=== PATIENT | male | born 1965 | race Two or more races ===

== ENCOUNTER 2016-07-31 16:42 | Inpatient (IN) | payer OTHER ==
--- NOTE | 2016-07-31 17:54 | EDPHY ---
H & P Time Seen by Provider: 07/31/16 17:22 HPI/ROS: CHIEF COMPLAINT: left middle finger infection HISTORY OF PRESENT ILLNESS: 50-year-old male presents emergency department reporting pain to his left middle finger. Patient states 5 days ago he was receiving a stool work when he had a sudden sharp pain to the palmar aspect of his DIP joint, he reports later that evening his finger became red and swollen and began draining blood and pus to dorsal aspect middle finger just proximal to fingernail. He denies any break in skin, denies paronychia. Patient denies fevers or chills, he reports he is unable to bend his finger due to pain and swelling. He reports pain and swelling has increased over last 3 days. He is unsure of tetanus status. Patient is [id number]. Denies any medical history. REVIEW OF SYSTEMS: A comprehensive 10 point review of systems is otherwise negative aside from elements mentioned in the history of present illness. Smoking Status: Never smoked Physical Exam: GEN: Awake, alert, oriented, no acute distress RESP: nl resp effort MSK: Left middle finger with diffuse swelling, erythema, tenderness to palpation to palmar aspect and dorsal aspect middle finger, positive Kanaval signs. No erythematous streaks. Patient with a bloody serous drainage to dorsal aspect hand right at nail bed. Sensation intact to light touch, moderate tenderness to palpation. Able to move finger at MCP joint. No wrist tenderness, 2+ radial pulses. Constitutional: Initial Vital Signs Temperature (C) 36.7 C 07/31/16 16:59 Heart Rate 76 07/31/16 16:59 Respiratory Rate 18 07/31/16 16:59 Blood Pressure 189/104 H 07/31/16 16:59 O2 Sat (%) 96 07/31/16 16:59 O2 Delivery Mode Room Air Allergies/Adverse Reactions: No Known Allergies Allergy (Unverified 07/31/16 16:58) Home Medications: Medication Instructions Recorded NK [No Known Home Meds] 07/31/16 MDM/Departure - MDM Diagnostics: Finger x-ray independently reviewed by me Impression: 1. Small chip or avulsion fractures along the dorsal aspect of the DIP joint left third digit. Dictated By: Domingo Morejon MD Procedures: Left middle finger anesthetized with digital block using 1% lidocaine mixed with 0.5% Marcaine without epinephrine, good anesthesia obtained. Dorsal aspect of 3rd finger just proximal to fingernail debrided. Minimal purulent discharge out with blood. Medications Given: Discontinued Medications Cefazolin Sodium/Dextrose (Ancef 1 Gm (Premix)) 50 mls @ 200 mls/hr IV EDNOW ONE PRN Reason: Protocol Stop: 07/31/16 18:17 Last Admin: 07/31/16 18:09 Dose: 50 mls ED Course/Re-evaluation: IV established, CBC and chemistry panel obtained, patient is given 1 g of Ancef IV. CBC is unremarkable, x-ray is obtained. 7pm-I have called Dr. Bello for consultation as I am concerned the patient has a tenosynovitis. He is requesting an MRI with contrast. The patient has not had anything to eat or drink since 9:00 a.m.. He is aware of plan for NPO. 1030pm-MRI shows no evidence tenosynovitis, no osteo, no fluid collection. I spoke with Dr. Bello about these results. He reviewed the MRI himself in sees no evidence of tenosynovitis or fluid collection that needs I&D. Patient will be admitted to the hospitalist for IV antibiotics and further observation. - Depart Disposition: [facility] Inpatient Acute Clinical Impression: Cellulitis of left middle finger Condition: Fair Referrals: NONE *PRIMARY CARE P,. [Primary Care Provider] - As per Instructions
[2016-07-31 18:36] LABS: % IMMATURE GRANULYOCYTES 0.3 % (0.0-1.1); ABSOLUTE IMMATURE GRANULOCYTES 0.03 10^3/uL (0.00-0.10); ADD DIFF? NO; ADD MORPH? NO; ADD SCAN? NO; ATYPICAL LYMPHOCYTE FLAG 10 (0-99); FRAGMENT RBC FLAG 0 (0-99); HEMATOCRIT 46.2 % (40.0-51.0); HEMOGLOBIN 16.5 g/dL (13.7-17.5); LEFT SHIFT FLG 0 (0-99); LIPEMIA HEMOLYSIS FLAG 90 (0-99); MEAN CELL HEMOGLOBIN 30.9 pg (27.9-34.1); MEAN CELL HEMOGLOBIN CONCENTR. 35.7 g/dL (32.4-36.7); MEAN CELL VOLUME 86.5 fL (81.5-99.8); MEAN PLATELET VOLUME 12.5 fL (8.7-11.7); PLATELET CLUMPS FLAG 0 (0-99); PLATELET COUNT 153 10^3/uL (150-400); RED BLOOD CELL COUNT 5.34 10^6/uL (4.40-6.38); RED CELL DISTRIBUTION WIDTH 12.8 % (11.5-15.2)
[2016-07-31 18:51] LABS: ANION GAP 12 mEq/L (8-16); CALCIUM 9.7 mg/dL (8.5-10.4); CARBON DIOXIDE 26 mEq/l (22-31); CHLORIDE 102 mEq/L (97-110); CREATININE 0.7 mg/dL (0.7-1.3); GLOMERULAR FILTRATION RATE > 60; GLUCOSE 77 mg/dL (70-100); SODIUM 140 mEq/L (134-144)
[2016-07-31] MEDS ORDERED: GADOBUTROL 10 ML VIAL IVP ONE (20:54)
[2016-07-31] MEDS ORDERED: VANCOMYCIN HCL/NORMAL SALINE 250 ML IV ONE (23:37)
[2016-07-31] MEDS ORDERED: ONDANSETRON DISINTEGRATING 4 MG TAB PO PRN (23:38)
[2016-07-31] MEDS ORDERED: ONDANSETRON 4 MG/2 ML VIAL IVP PRN (23:38)
[2016-07-31] MEDS ORDERED: ACETAMINOPHEN 325 MG TAB PO PRN (23:38)
[2016-07-31] MEDS ORDERED: NS 1,000 ML IV SCH (23:45)
--- NOTE | 2016-08-01 00:32 | GHP ---
[f rep st] HISTORY AND PHYSICAL DATE OF ADMISSION: 07/31/2016 CHIEF COMPLAINT: Finger infection. 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 He was squeezing something and felt immediate pain on the inside part of his finger . He said that it immediately turned red after that. The pain continued. However, he was still ab le to work. He did note that some pus came out of the area below his nail today. Thus, he presente d to the emergency department. He has never had any severe infections before. He has never had any allergies to antibiotics. He has not had any fevers at home. He has no pain in his hand. He is n ot really able to move the DIP or the PIP joints. He is able to move the MCP joint. PAST MEDICAL/SURGICAL HISTORY: None. MEDICATIONS: None. ALLERGIES: None. FAMILY HISTORY: Says does not have any major problems running in his family. SOCIAL HISTORY: He occasionally drinks. Does not smoke. REVIEW OF SYSTEMS: A 10-point review of systems is conducted and is negative except per HPI. PHYSICAL EXAMINATION: VITAL SIGNS: Blood pressure 189/104, heart rate 76, respiration rate 18, sat urating 96% on room air, temperature 36.7. GENERAL: The patient is a very pleasant [place]-speakin g man who appears comfortable, in no acute distress. HEENT: Shows him to be normocephalic, atrauma tic. CARDIOVASCULAR: Shows regular rate and rhythm. No murmurs, rubs, or gallops. PULMONARY: Sh ows lungs clear to auscultation bilaterally. ABDOMEN: Soft, nontender, nondistended. SKIN: Shows no rash. : Shows no Nixon. NEUROLOGIC: Shows him to be alert and oriented x3. He is moving a ll extremities. PSYCHIATRIC: Shows normal mood and affect. EXTREMITIES: Show his left middle fin hiram to be edematous, erythematous, warm. He does have sensation. It is quite tender to palpation. Has some blood oozing out from below his finger. He has been soaking it in water. I was told that there was pus there previously. He has no streaking, no axillary lymphadenopathy. LABS: CBC is normal. Basic metabolic panel is normal. DATA: 1. I discussed this with Rosmery Grider in the ED. Will admit to med/surg. 2. MRI shows swelling involving the left 3rd digit with enhancement. There is a fluid collection. IMPRESSION AND PLAN: This is a 50-year-old man with a finger infection. 1. Finger infection: He has no systemic signs at this point but I think he needs IV antibiotics gi marlo the location and the appearance of his finger. I think this is likely gram-positive though he w orks as a process control board operator so for now, I will cover gram-negatives. I and D was attempted in the emergency d epartment unsuccessfully. Dr. Bello with Hand Surgery has been consulted. I will place an Infectiou s Disease consult order as well to request a nonurgent consult for tomorrow. This is a high-risk di agnosis with an infection involving the finger. 2. Hypertension: This is uncontrolled, I believe, due to pain. I will not treat this at this poin t but rather treat his pain. /[id number]/MODL
[2016-08-01] MEDS: ERTAPENEM 1 GM in NS 100 ML IV SCH ×2 (02:20→09:54)
[2016-08-01] MEDS: oxyCODONE IR 5 MG TAB PO PRN ×4 (04:18→14:53)
[2016-08-01 05:21] LABS: % IMMATURE GRANULYOCYTES 0.3 % (0.0-1.1); ABSOLUTE IMMATURE GRANULOCYTES 0.03 10^3/uL (0.00-0.10); ADD DIFF? NO; ADD MORPH? NO; ADD SCAN? NO; ATYPICAL LYMPHOCYTE FLAG 0 (0-99); FRAGMENT RBC FLAG 0 (0-99); HEMATOCRIT 43.2 % (40.0-51.0); HEMOGLOBIN 15.1 g/dL (13.7-17.5); LEFT SHIFT FLG 0 (0-99); LIPEMIA HEMOLYSIS FLAG 90 (0-99); MEAN CELL HEMOGLOBIN 30.3 pg (27.9-34.1); MEAN CELL VOLUME 86.7 fL (81.5-99.8); MEAN PLATELET VOLUME 12.1 fL (8.7-11.7); PLATELET CLUMPS FLAG 0 (0-99); PLATELET COUNT 169 10^3/uL (150-400); RED BLOOD CELL COUNT 4.98 10^6/uL (4.40-6.38)
[2016-08-01 05:44] LABS: ANION GAP 11 mEq/L (8-16); CALCIUM 8.9 mg/dL (8.5-10.4); CARBON DIOXIDE 23 mEq/l (22-31); CHLORIDE 106 mEq/L (97-110); CREATININE 0.7 mg/dL (0.7-1.3); GLOMERULAR FILTRATION RATE > 60; GLUCOSE 112 mg/dL (70-100); POTASSIUM 3.8 mEq/L (3.5-5.2); SODIUM 140 mEq/L (134-144)
[2016-08-01] MEDS: VANCOMYCIN HCL/NORMAL SALINE 250 ML IV SCH ×2 (10:42→22:49)
--- NOTE | 2016-08-01 15:50 | HOSPPROG ---
Hospitalist Progress Note Assessment/Plan: 50-year-old male presents emergency room complaints finger pain. This is my 1st encounter with the patient, chart reviewed. Patient discussed with Dr. Kalpesh Streeter admitting physician. # finger infection Await ID consult Await ortho consult I&D attempted in the emergency room Continue IV antibiotics # pain Continue supportive management # hypertension Continue to follow May be due to pain # disposition Unclear at this time await further consultations Infectious Disease Ortho Subjective: Feeling a bit better today. Less pain in his finger. Still unable to move his finger easily. Objective: Vital Signs Temp Pulse Resp BP Pulse Ox 36.8 C 66 16 152/88 H 90 L 08/01/16 12:00 08/01/16 12:00 08/01/16 12:00 08/01/16 12:00 08/01/16 12:00 Laboratory Results 08/01/16 04:34 08/01/16 04:34 07/31/16 08/01/16 08/02/16 05:59 05:59 05:59 Intake Total 515 Balance 515 - Physical Exam Constitutional: no apparent distress, appears nourished, uncomfortable Eyes: PERRL, anicteric sclera, EOMI Ears, Nose, Mouth, Throat: moist mucous membranes, hearing normal, ears appear normal Cardiovascular: No JVD, No tachycardia, No edema Respiratory: no respiratory distress, no rales or rhonchi, reduced air movement Gastrointestinal: No tenderness, No ascites, No guarding Skin: warm, erythema, No mottled Musculoskeletal: full muscle strength, no joint effusions, joint tenderness Neurologic: AAOx3 Psychiatric: interacting appropriately, not anxious, not encephalopathic ICD10 Worksheet Patient Problems: Problems Problem Status Onset Cellulitis of left middle finger Acute
--- NOTE | 2016-08-01 17:54 | GCON ---
[f rep st] CONSULTATION INPATIENT INFECTIOUS DISEASE CONSULTATION REFERRING PHYSICIAN: Bhaskar Streeter MD REASON FOR REFERRAL: Left 3rd digit cellulitis and abscess. HISTORY OF PRESENT ILLNESS: Patient is a 50-year-old male, who presented to [facility] emergency room the evening of 07/31/2016. The patient complained of approximately a 5-day history of left 3rd digit swelling, redness, and tenderness to palpation. He had a draining bloody purulen ce from the nail bed at presentation. He was noticed to have a significantly swollen finger which w as tender to mild examination. 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 He was placed on vancomycin an d ertapenem empirically. He had a plain x-ray done and an upper extremity MRI performed, neither of which showed clear abscess. In the ensuing 18 hours since admission, his finger has felt better. Decreased erythema as well as size. PAST MEDICAL HISTORY: Negative. PAST SURGICAL HISTORY: Negative. ANTIBIOTICS: 1. Vancomycin. 2. Ertapenem. ALLERGIES: Patient has no known medical allergies. SOCIAL HISTORY: Patient has occasional alcoholic drink. No tobacco use. 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 FAMILY HISTORY: Reviewed, but noncontributory. REVIEW OF SYSTEMS: Other than that detailed above in history of present illness, a comprehensive 10 -system review is negative. PHYSICAL EXAMINATION: VITAL SIGNS: Temperature maximum is 37, temperature current is 36.8. Heart rate is 66, respiratory rate is 16, blood pressure is 152/88. GENERAL: The patient is a well-forme d, well-nourished, middle-aged male, in no acute distress. He is not toxic in appearance. He is al ert and oriented x3, and a pleasant demeanor. HEENT: Normocephalic for age. Atraumatic. HEART: Regular rate and rhythm. No murmur, rub, or gallop noted. No significant peripheral edema. LUNGS: Clear to auscultation bilaterally with good effort. SKIN: Warm and dry to the touch. No rash no maco. The patient has obvious erythema and edema of the left 3rd digit. There is draining seropurul ent fluid from the dorsal aspect of the nail bed. The area of skin above the nail bed has fluctuanc e to it. MUSCULOSKELETAL: No other muscle belly tenderness is noted. No joint line effusion or ar thritis is seen. NEURO: Cranial nerves 2-12 seem to be intact. Peripheral sensation intact in all extremities. LABORATORY DATA: Patient has a CBC dated 08/01/2016, shows a white blood cell count of 9.19, hemogl obin of 15.1, hematocrit 43.2, and a platelet count of 169. Differential is within normal limits. Serum chemistries on 08/01/2016 show sodium 140, potassium 3.8, chloride of 106, bicarbonate of 23, BUN of 12, and creatinine is 0.7. MICROBIOLOGIC DATA: Patient has a wound swab pending from my examination today. ASSESSMENT: Left 3rd finger cellulitis with dorsal abscess which is superficial and draining. Stre p and staph would be the most common cause of this presentation. The patient is covered with vancom ycin and ertapenem. Given the severity of the initial presentation, we will keep the broad empiric coverage until Gram stain and wound culture data are available. Hand Surgery to see later today. M ay require surgical washout. PLAN: 1. Continue both vancomycin and ertapenem at present. 2. Follow Gram stain and culture data. 3. Follow clinical condition of the finger. /[id number]/MODL
--- NOTE | 2016-08-01 18:07 | SOAPPROG ---
SOAP Progress Note Assessment/Plan: Assessment:Improvement proximally and localization distally. Plan: Continue IV abx. Will re-eval tomorrow and likely drain at bedside under local. Full consultation note dictated. 08/01/16 18:05 Subjective: Pain a lot better Objective: Vital Signs Temp Pulse Resp BP Pulse Ox 37.1 C 70 16 151/91 H 95 08/01/16 16:00 08/01/16 16:00 08/01/16 16:00 08/01/16 16:00 08/01/16 16:00 Laboratory Results 08/01/16 04:34 08/01/16 04:34 07/31/16 08/01/16 08/02/16 05:59 05:59 05:59 Intake Total 515 Balance 515 Incompletely drained paronychia left III, Improvement in proximal extent of infections process. Hyponychium and paronychium now with fluctuant areas radially and ulnarly. ICD10 Worksheet Patient Problems: Problems Problem Status Onset Cellulitis of left middle finger Acute
--- NOTE | 2016-08-01 19:54 | GCON ---
[f rep st] CONSULTATION INPATIENT CONSULTATION DATE OF CONSULTATION: 08/01/2016 REASON FOR CONSULTATION: Left long finger infection. HISTORY: The patient is a 50-year-old gentleman who has an interesting story where he was using a p air of pliers 5-6 days ago when he felt something pop in his left long finger. He had exquisite dis comfort afterwards. Subsequent to that, his finger became enlarged, red and swollen, and worsened o mickey the course of 3-4 days. He presented yesterday to the emergency department with a painful, swol lester red digit. MRI evaluation at the time did not identify any abscess or fluid collection. Noneth eless, an attempted paronychia drainage was completed without any identification of pus. The erythema, apparently, at the time in the emergency department according to his intake notes from the emergency department, as well as his H and P, was that his digit was markedly swollen and eryth ematous all the way down to the base with inability to flex the MP joint more than about 5-10 degree s, and complete inability to flex or extend the PIP or DIP joints. I have reviewed the intake emergency department documentation, as well as H and P in detail. PHYSICAL EXAMINATION: Today, finds his finger to be without erythema. He has minimal swelling evid ent with exception of the tip, where there was some discharge draining from the eponychial fold, and what appears to be a small purposeful puncture on the ulnar side. There is a fluctuant area on bot h the radial and ulnar sides of the joint. I am unable to assess joint motion itself. His nail tyree te does appear to sit awkwardly and is raised up proximally somewhat from its duckwater embedded positi on in the eponychial fold. Both the perionychium and hyponychium are still inflamed and quite tende r, but he indicates his discomfort in his finger is now quite considerably improved. He has capilla ry refill of 2 seconds, less in his finger pulp, and a normal sensory examination on both the radial ulnar side of the left long finger. DIAGNOSTIC STUDIES: I reviewed his imaging studies. He had an MRI last night, which did not reveal any fluid collection. IMPRESSION/RECOMMENDATIONS: Likely, this was a paronychia that had not coalesced to a true area of pus collection. It had spread proximally a cellulitis, which is now dramatically improved since he has been on antibiotics now for approximately 18 hours. PLAN: Observe this tonight with IV antibiotics. Keep the light bulky dressing on that he has, and tomorrow if there are still fluctuant areas, I will perform a formal drainage procedure at the [facility] under local anesthetic. The patient is agreeable to this plan. /[id number]/MODL
[2016-08-02] MEDS: ERTAPENEM 1 GM in NS 100 ML IV SCH (09:12)
--- NOTE | 2016-08-02 09:58 | PCMIDPN ---
Assessment/Plan: 1. Left 3rd finger cellulitis secondary to Staph aureus: Continue vancomycin pending susceptibility of Staph aureus. Check trough before next dose. Will discontinue ertapenem. Patient cannot recall his last tetanus booster therefore will order Tdap in the right arm. Dr. Bello to evaluate today for possible incision and drainage versus medical management only. Finger looks better per the patient, with decreased erythema and swelling. No evidence of abscess or tenosynovitis or bone infection on MRI. He understands that he will need a few more days of IV antibiotics, which point can transition to oral therapy. 08/02/16 09:58 Subjective: Chart reviewed, patient examined. States that his finger is much better. Erythema and swelling also better. No diarrhea, nausea or vomiting or rash on antibiotics. Cannot recall his last tetanus booster. Objective: Vancomycin 1 g IV q.12 hours day 1. Ertapenem 1 g IV daily day 2. Afebrile Vital Signs Temp Pulse Resp BP Pulse Ox 36.2 C 62 16 156/91 H 94 08/02/16 07:37 08/02/16 07:37 08/02/16 07:37 08/02/16 07:37 08/02/16 07:37 Microbiology 08/01/16 14:45 Gram Stain - Final Finger - Swab Laboratory Results 08/01/16 04:34 08/01/16 04:34 08/01/16 08/02/16 08/03/16 05:59 05:59 05:59 Intake Total 515 875 Output Total 350 Balance 515 525 Finger drainage: G stain rare gram-positive cocci. I called the microbiology lab: Plate growing Staph aureus - Physical Exam General Appearance: alert, no apparent distress EENT: pharynx normal Respiratory: lungs clear Extremities: other (Left 3rd digit is sausage like and with dusky erythema. Some serous drainage at the base of the nail bed. Patient is able to full ex his finger, but with difficulty secondary to swelling.) Skin: No rash ICD10 Worksheet Patient Problems: Problems Problem Status Onset Cellulitis of left middle finger Acute
--- NOTE | 2016-08-02 10:16 | PCMIDPN ---
Assessment/Plan: 1. Left 3rd finger cellulitis secondary to Staph aureus: Continue vancomycin pending susceptibility of Staph aureus. Check trough before next dose. Will discontinue ertapenem. Patient cannot recall his last tetanus booster therefore will order Tdap in the right arm. Dr. Bello to evaluate today for possible incision and drainage versus medical management only. Finger looks better per the patient, with decreased erythema and swelling. No evidence of abscess or tenosynovitis or bone infection on MRI. He understands that he will need a few more days of IV antibiotics, which point can transition to oral therapy. 08/02/16 09:58 Objective: Vital Signs Temp Pulse Resp BP Pulse Ox 36.2 C 62 16 156/91 H 94 08/02/16 07:37 08/02/16 07:37 08/02/16 07:37 08/02/16 07:37 08/02/16 07:37 Microbiology 08/01/16 14:45 Gram Stain - Final Finger - Swab Laboratory Results 08/01/16 04:34 08/01/16 04:34 08/01/16 08/02/16 08/03/16 05:59 05:59 05:59 Intake Total 515 875 Output Total 350 Balance 515 525 ICD10 Worksheet Patient Problems: Problems Problem Status Onset Cellulitis of left middle finger Acute
[2016-08-02] MEDS ORDERED: TDAP ADULT 0.5 ML INJ (BOOSTRIX) IM ONE (10:30)
[2016-08-02] MEDS: oxyCODONE IR 5 MG TAB PO PRN ×3 (11:26→21:10)
[2016-08-02] MEDS: VANCOMYCIN HCL/NORMAL SALINE 250 ML IV SCH ×2 (12:18→21:12)
--- NOTE | 2016-08-02 13:36 | HOSPPROG ---
Hospitalist Progress Note Assessment/Plan: 50-year-old male presents emergency room complaints finger pain. This is my 1st encounter with the patient, chart reviewed. # left 3rd finger cellulitis secondary to Staph aureus -vancomycin/appreciate ID -will need a few more days of iv abx therapy -appreciate Dr Bello - patient cannot bend his finger # pain -due to the above # hypertension blood pressure has been consistently high will start him on low-dose Norvasc and see how he does # disposition will need another midnight stay for evaluation Subjective: Darrell has no specific complaints. Overall is feeling well. Objective: Vital Signs Temp Pulse Resp BP Pulse Ox 36.2 C 62 16 156/91 H 94 08/02/16 07:37 08/02/16 07:37 08/02/16 07:37 08/02/16 07:37 08/02/16 07:37 Microbiology 08/01/16 14:45 Gram Stain - Final Finger - Swab Laboratory Results 08/01/16 04:34 08/01/16 04:34 08/01/16 08/02/16 08/03/16 05:59 05:59 05:59 Intake Total 515 875 Output Total 350 Balance 515 525 - Physical Exam Constitutional: no apparent distress, appears nourished Eyes: PERRL Ears, Nose, Mouth, Throat: hearing normal Cardiovascular: regular rate and rhythym Respiratory: no respiratory distress Gastrointestinal: normoactive bowel sounds Skin: other ( left 3rd finger with swelling and erythema/ patient is unable to bend his finger at the joint) Musculoskeletal: full muscle strength Neurologic: AAOx3 Psychiatric: interacting appropriately, not anxious ICD10 Worksheet Patient Problems: Problems Problem Status Onset Cellulitis of left middle finger Acute
[2016-08-02] MEDS ORDERED: LIDOCAINE 2% 100 MG/5 ML SYR ONE (14:00)
[2016-08-02] MEDS ORDERED: LIDOCAINE 1% 30 ML SDV ONE (14:03)
--- NOTE | 2016-08-02 17:02 | POSTOPPROG ---
Post Op Note Date of Operation: 08/02/16 Surgeon: Anup Bello Numerical Control Machine Operator: None Anesthesiologist: Local by Surgeon Anesthesia: Local (Specify) (1% lidocaine digital block) Pre-op Diagnosis: Paronychia Left III Post-op Diagnosis: Same Procedure: I + D Paronychia Left III Findings: Thick pus present. Fully evacuated and wound left open Inf/Abcess present in the surg proc area at time of surgery?: Yes Depth: Deep Incisional (Fascial) EBL: Minimal Complications: None
--- NOTE | 2016-08-02 19:18 | GOP ---
[f rep st] OPERATIVE REPORT DATE OF OPERATION: 08/02/2016 SURGEON: Anup Bello MD PREOPERATIVE DIAGNOSIS: Left long finger paronychia. POSTOPERATIVE DIAGNOSIS: Left long finger paronychia. PROCEDURE PERFORMED: Irrigation and debridement left long finger paronychia. FINDINGS: Thick pus was encountered in the eponychial region. This also included the hyponychium. I removed a 3 mm thick section of full thickness skin and left this open to drain. INDICATIONS: The patient is a 50-year-old gentleman who had the onset of a paronychia after a relat ively atraumatic injury to his left long finger toward the DIP joint. Initial MRI showed no fluid c ollection. He subsequently was found to have, however, cellulitis of the digit. He has improved si gnificantly, however now has fluctuance over the DIP joint on the radial and ulnar sides. He has pu s extruding under the eponychial fold. I performed a bedside I and D procedure today. DESCRIPTION OF PROCEDURE: After discussing this with the patient, and under sterile conditions, I p erformed a digital block using 1% lidocaine in the left long finger. Once a dense level of anesthes ia had been achieved, I sterilely prepped and draped the patient's left long finger. I applied a to urniquet at the base of the digit and then made a crescentic incision approximately 8 mm proximal to the eponychial fold. I created a second incision parallel to the first approximately 4 to 5 mm fro m this. I removed a wedge of skin. I then dissected the subcutaneous layer radially and ulnarly un til I exposed the full area of the dorsal nail plate and hyponychium. I irrigated this thoroughly. The above findings were noted. I covered this with a sterile bulky dressing and compressive wrap. The patient tolerated this well, and there were no complications. /[id number]/MODL
[2016-08-03] MEDS: oxyCODONE IR 5 MG TAB PO PRN ×3 (04:52→20:45)
[2016-08-03] MEDS: VANCOMYCIN HCL/NORMAL SALINE 250 ML IV SCH ×2 (04:53→12:39)
[2016-08-03 05:32] LABS: ALANINE AMINOTRANSFERASE 42 IU/L (21-72); ALBUMIN 4.1 g/dL (3.5-5.0); ALKALINE PHOSPHATASE 91 IU/L (38-126); ANION GAP 11 mEq/L (8-16); ASPARTATE AMINOTRANSFERASE 33 IU/L (17-59); BILIRUBIN,TOTAL 0.8 mg/dL (0.1-1.4); CALCIUM 9.1 mg/dL (8.5-10.4); CARBON DIOXIDE 23 mEq/l (22-31); CHLORIDE 105 mEq/L (97-110); CREATININE 0.7 mg/dL (0.7-1.3); GLOMERULAR FILTRATION RATE > 60; GLUCOSE 96 mg/dL (70-100); POTASSIUM 4.3 mEq/L (3.5-5.2); SODIUM 139 mEq/L (134-144)
--- NOTE | 2016-08-03 11:52 | SOAPPROG ---
SOAP Progress Note Assessment/Plan: Assessment:Continues to improve Plan: Continue IV abx. Will have OT see for Joint Mobilization. May take down dressing and cover with bandaid this evening. Subjective: Pain control good now was quite painful last night Objective: Vital Signs Temp Pulse Resp BP Pulse Ox 36.7 C 59 L 16 153/97 H 95 08/03/16 07:50 08/03/16 07:50 08/03/16 07:50 08/03/16 07:50 08/03/16 07:50 Laboratory Results 08/03/16 04:43 08/02/16 08/03/16 08/04/16 05:59 05:59 05:59 Intake Total 200 Balance 200 CSM intact on exposed finger tip, warm and pink. Non tender along flexor and extensor side of Left III to just distal to PIPJ. Limited ability for F/E at PIPJ ICD10 Worksheet Patient Problems: Problems Problem Status Onset Cellulitis of left middle finger Acute
--- NOTE | 2016-08-03 12:52 | HOSPPROG ---
Hospitalist Progress Note Assessment/Plan: 50-year-old male presents emergency room complaints finger pain. # left 3rd finger cellulitis secondary to Staph aureus -vancomycin/appreciate ID -will need a few more days of iv abx therapy -s/p I & D -OT to see to help with mobility of his finger # pain -well controlled # hypertension blood pressure has been consistently high started on low-dose Norvasc with some improvement/ will increase dose tomorrow and follow # disposition will discuss with ID as to when he can be dc Subjective: Darrell said his pain is well managed overall/ his finger was throbbing last night but better today. Objective: Vital Signs Temp Pulse Resp BP Pulse Ox 36.7 C 59 L 16 153/97 H 95 08/03/16 07:50 08/03/16 07:50 08/03/16 07:50 08/03/16 07:50 08/03/16 07:50 Laboratory Results 08/03/16 04:43 08/02/16 08/03/16 08/04/16 05:59 05:59 05:59 Intake Total 200 Balance 200 - Physical Exam Constitutional: no apparent distress, appears nourished, not in pain Eyes: PERRL Ears, Nose, Mouth, Throat: hearing normal Cardiovascular: regular rate and rhythym Respiratory: no respiratory distress Gastrointestinal: normoactive bowel sounds Skin: warm, other (left middle finger with dressing) Musculoskeletal: full muscle strength Neurologic: AAOx3 Psychiatric: interacting appropriately ICD10 Worksheet Patient Problems: Problems Problem Status Onset Cellulitis of left middle finger Acute
[2016-08-03] MEDS ORDERED: amLODIPine BESYLATE 5 MG TAB PO SCH (12:59)
--- NOTE | 2016-08-03 14:01 | PCMIDPN ---
Assessment/Plan: Assessment/Plan: 1. Left 3rd finger felkarel: -s/p I &D yesterday. - Cx from 08/01/16 showing MSSA - Currently on Vanco. will change to Ancef today. -Depending on how it looks clinically, hope to change to PO antibiotics soon -Care discussed with Dr. Bello. Meds VAnco 1g q8- Subjective: Afebrile. FEels better. Less pain. Less swelling. still a bit red. s/p I &D yesterday. Denies sob, abd pain or diarrhea. Objective: Vital Signs Temp Pulse Resp BP Pulse Ox 36.7 C 59 L 16 153/97 H 95 08/03/16 07:50 08/03/16 07:50 08/03/16 07:50 08/03/16 07:50 08/03/16 07:50 Laboratory Results 08/03/16 04:43 08/02/16 08/03/16 08/04/16 05:59 05:59 05:59 Intake Total 200 Balance 200 - Physical Exam General Appearance: alert, no apparent distress Respiratory: lungs clear Cardiac/Chest: regular rate, rhythm, No systolic murmur Extremities: swelling (involving 3rd digit on left), other (left 3rd digit wrapped in dressing. discussed with Dr. Bello. He prefers it not be taken down at this time.) Abdomen: normal bowel sounds, non-tender, soft, No distended Skin: erythema (mild involving 3rd digit on left) ICD10 Worksheet Patient Problems: Problems Problem Status Onset Cellulitis of left middle finger Acute
[2016-08-03] MEDS: ceFAZolin 2 GM/DEXTROSE 100 ML IV SCH ×2 (17:07→20:48)
[2016-08-04] MEDS: ceFAZolin 2 GM/DEXTROSE 100 ML IV SCH ×2 (07:00→12:37)
[2016-08-04] MEDS: oxyCODONE IR 5 MG TAB PO PRN (07:40)
--- NOTE | 2016-08-04 08:55 | PCMIDPN ---
Assessment/Plan: Assessment/Plan: 1. Left 3rd finger felon: -s/p I &D on 08/02/16 - Cx from 08/01/16 showing MSSA - on Ancef. Can change to dicloxacillin 500mg q6 for 10 days at discharge. Side effects of therapy reviewed with patient. -f/u in my office on 08/12/16 at 2pm. -Await Dr. Bello's re-eval today. - Ok to discharge if ok with Dr. Bello Meds ANcef 2g q8 s/p VAnco 1g q8- Subjective: Afebrile. FEels well. wants to go home. denies sob, abd pain or diarrhea. finger sore near nail bed. Objective: Vital Signs Temp Pulse Resp BP Pulse Ox 37.1 C 64 16 173/109 H 92 08/04/16 00:00 08/04/16 00:00 08/04/16 00:00 08/04/16 00:00 08/04/16 00:00 Laboratory Results 08/03/16 04:43 08/03/16 08/04/16 08/05/16 05:59 05:59 05:59 Intake Total 200 200 Output Total 300 Balance 200 -100 - Physical Exam General Appearance: alert, no apparent distress Respiratory: lungs clear Cardiac/Chest: regular rate, rhythm Extremities: swelling Abdomen: normal bowel sounds, non-tender, soft, No distended Skin: other (3rd finger left: superficial skin removed at time of I & D. small open wound noted. superficial tender on edge near nail bed. no pus. slightly improvment in swelling of digit. less erythema than yesterday. rom limited. ) ICD10 Worksheet Patient Problems: Problems Problem Status Onset Cellulitis of left middle finger Acute
--- NOTE | 2016-08-04 10:14 | HOSPPROG ---
Hospitalist Progress Note Assessment/Plan: 50-year-old male presents emergency room complaints finger pain. # left 3rd finger cellulitis secondary to Staph aureus -on Ancef -reviewed his care with Dr Mishra/will dc after Dr Bello sees him -s/p I & D -OT has given him exercises for his finger # pain -well controlled # hypertension blood pressure has been consistently high will cont Norvasc at dc/ he needs to get f/u # disposition dc today after Dr Bello sees him/ dc instructions will need to be in Sinhala Subjective: Darrell is anxious to be discharged. No complaints. Objective: Vital Signs Temp Pulse Resp BP Pulse Ox 37.1 C 64 16 173/109 H 92 08/04/16 00:00 08/04/16 00:00 08/04/16 00:00 08/04/16 00:00 08/04/16 00:00 Laboratory Results 08/03/16 04:43 08/03/16 08/04/16 08/05/16 05:59 05:59 05:59 Intake Total 200 200 Output Total 300 Balance 200 -100 - Physical Exam Constitutional: no apparent distress, appears nourished, not in pain Eyes: PERRL Ears, Nose, Mouth, Throat: hearing normal Cardiovascular: regular rate and rhythym, no murmur, rub, or gallop Respiratory: no respiratory distress Skin: warm, other (middle left finger in dressing) Musculoskeletal: no muscle tenderness Neurologic: AAOx3 Psychiatric: interacting appropriately ICD10 Worksheet Patient Problems: Problems Problem Status Onset Cellulitis of left middle finger Acute
--- NOTE | 2016-08-04 11:25 | SOAPPROG ---
SOAP Progress Note Assessment/Plan: Assessment/Plan: Left 3rd finger cellulitis secondary to Staph aureus s/p I&D -on Ancef, Can change to dicloxacillin 500mg q6 for 10 days at discharge per ID. -ok to d/c from ortho standpoint -Cont current PO pain regimen -OT has given him exercises for his finger, ok to continue -Pt will follow up 7-10 days w/ Dr. Bello in clinic as outpatient, or sooner w/ any additional concerns or complaints. -Pt will f/u w/ ID in office on 08/12/16 at 2pm. # hypertension blood pressure has been consistently high will cont Norvasc at dc/ he needs to get f/u 08/04/16 11:25 08/04/16 11:27 Subjective: No new complaints today. Pt states he feels well, and has no significant pain at this time. He denies any new onset n/t, as well as any f/c/n/v. He is anxious to d/c and has no additional concerns at this time. Objective: Vital Signs Temp Pulse Resp BP Pulse Ox 37.1 C 64 16 173/109 H 92 08/04/16 00:00 08/04/16 00:00 08/04/16 00:00 08/04/16 00:00 08/04/16 00:00 Laboratory Results 08/03/16 04:43 08/03/16 08/04/16 08/05/16 05:59 05:59 05:59 Intake Total 200 200 Output Total 300 Balance 200 -100 Left index finger appropriately dressed, clean and dry. No significant surrounding erythema, streaking, calor or induration. Forearm compartments are supple. Pt has intact light touch sensation, and is able to move finger w/out significant discomfort. ICD10 Worksheet Patient Problems: Problems Problem Status Onset Cellulitis of left middle finger Acute
[2016-08-04 12:41] VITALS: BP 142/89; PULSE 70; RESP 18; TEMP 98.4; O2SAT 95
--- NOTE | 2016-08-04 13:07 | GDS ---
[f rep st] DISCHARGE SUMMARY DISCHARGE DIAGNOSES: 1. Left 3rd finger cellulitis secondary to Staphylococcus aureus. 2. Pain due to this. 3. Hypertension. CONSULTATIONS: During this stay: 1. Dr. Jameel Calloway. 2. Dr. Anup Bello. 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 He hurt his finger 5 days prior to being admitted. He was squeezing something and felt immediate pain on the inside part of his fi nger. It immediately turned red. He presented to the emergency department for further evaluation. He was seen and evaluated by Dr. Bello, who did an I and D on 08/02/2016. It was noted that the pat ient had significant amount of pus. He removed 3 mm section of full-thickness of the skin, and left this open to drain. Throughout his stay he improved. He was initially treated with vancomycin. H e was changed to Ancef. His culture grew out Staphylococcus aureus. He improved nicely. He will b e discharged home today on dicloxacillin and follow up with Dr. Bello and Dr. Mishra in the outpatient s etting. HOSPITAL COURSE: 1. Left 3rd finger cellulitis secondary to Staphylococcus aureus. He is markedly improved. He cheyanne l further follow up with Dr. Bello and Dr. Mishra in the outpatient setting. 2. Pain well controlled. 3. Hypertension. This is a new diagnosis for him. He has been started on Norvasc with some improv ement. I would like him to follow up with his primary care provider and get further evaluation. He definitely needs more treatment for this. CONDITION AT DISCHARGE: Stable. Blood pressure is 152/88, heart rate is 64, respiratory rate is 16 , O2 saturation room air 92%, temperature 37.1 Celsius. MEDICATIONS AT DISCHARGE: Please see the EMR. DISCHARGE INSTRUCTIONS: 1. To keep his left middle finger covered, especially at his work. Recommending no heavy lifting u ntil he sees Dr. Bello. 2. To follow up with Dr. Mishra in the outpatient setting. 3. If he develops a fever, chills, chest pain, or shortness of breath, return to the ER. 4. He has new hypertension that needs more evaluation, to see his primary care provider within a we ek. Greater than 30 minutes discharging and coordinating care. Copy requested to: Dr. Mishra /[id number]
== END 2016-08-04 13:40 | disposition home or self-care (01) | DRG 572 ==
LOC: F3N 08-01 00:06 → OBSVTOIN 08-02 15:35
PROVIDERS: ADMIT Student in an Organized Health Care Education/Training Program; ATTEND Student in an Organized Health Care Education/Training Program
PROC: 0HBGXZZ Excision of Left Hand Skin, External Approach (ICD-10-PCS; principal; 2016-08-02)
PROC: 0H9GXZZ Drainage of Left Hand Skin, External Approach (ICD-10-PCS; 2016-08-02)
DX: L03.012 Cellulitis of left finger (principal); I10 Essential (primary) hypertension; Z23 Encounter for immunization
CPT/HCPCS: 82947-QW; 96374; 97110-GO; 97165-GO; A9585; G0378; J0690; J1335; J2001; J3370